=== PATIENT | male | born 1990 ===

== ENCOUNTER 2025-04-13 11:07 | Outpatient (AMB) | payer OTHER, SELFPAY ==
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
[2025-04-13 11:18] VITALS: BP 143/88; PULSE 74; O2SAT 99; BMI 36.4
--- OUTSIDE RECORDS SUMMARY | 2025-04-13 13:26 | XMS_ITS | Encounter Summary ---
Author Organization [facility] Address [address] [place] [address] Encounters * CPT with Dane Carreon at [employer] on 2024-12-25 { reasonForRequest : Wound care post surgery on patients Shoulder. , patie ntReports : , denies :[ Manzo Flash, circumferential manzo , Manzo reported with black tissue to the area , Open skin area after a fall with uncontrolled bleeding , Abscess/infection with streaking noted, presence of fever or without", History of cellulitis, isolated redness noted , Fever and chills noted in setting of wound , Rash , Bites -bugs, spider , Abscess ], chiefC omplaints : Wound Care, Extremity Swelling , pmh : Anxiety Disorder&qu ot;, allergies : No Known Drug Allergies , otherAllergies : &quot ;, painAssessment : , visitOutcome : , additionalComments : 34 y.o male complains of Wound Care, Extremity Swelling\nPatient had right shoulder surgery on 12/21/24 and states they did not send him home with any supplies and has no VNA at this time. Patient states there is draining on the dressing and he has not removed it yet. Complains of pain, and swelling in right shoulder denies any warmth and of note states he removed the SADI drain himself yesterday because he thought that's what he was instructed to do once there was no drainage in the bulb. denies any fever or chills at this time. reviewed red flags. \n\nI provided information onthe mobile health provider response time and advised the patient and/or caregiver to monitor reported signs and symptoms. I discussed the warning signs of when to seek emergency care. } Patient alert and oriented complains of right shoulder pain. Patient underwent shoulder fusion surgery three days ago, requests wound care and dressing change. Patient denies nausea, vomiting, diarrhea, chest pain, difficulty, breathing dizziness, weakness fever, chills, or any other pain or complaints. Patient reports he removed drain attached to wound. Patient pink warm dry wound in pictures, secondary exam unremarkable. Negative increase work of breathing positive full sentences right arm in sling with padding. Good CSM???s right arm. Wound examined, dressings discolored with blood. Pictures in documents. Wound bandaged, advised to call back if dressings become discolored. Patient advised to attend the Follow up appointment in twoweeks. Red flags patient education discussed. Patient demonstrates understanding of care and plan. IV_(FLUIDS_AND/OR_MEDICATION), MEDICATION_IM, ORAL_MEDICATION, WOUND_CARE, ORTHOSTATIC_VITAL_SIGNS Written by Dane Carreon on 2024-12-25
--- OUTSIDE RECORDS SUMMARY | 2025-04-13 13:26 | XMS_ITS | Continuity of Care Document ---
Author Name Dane Carreon Address [address] [place] [id number] Organization Unknown Address [address] [place] [address] Medications No known medications Problems No known problems
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
== END 2025-04-13 11:42 | disposition home or self-care (01) ==
LOC: HO.PMC 11:07
PROVIDERS: PCP Student in an Organized Health Care Education/Training Program; Visit Provider Nurse Practitioner Family
DX: M54.50 Low back pain, unspecified (principal); M53.3 Sacrococcygeal disorders, not elsewhere classified; M25.511 Pain in right shoulder; G89.29 Other chronic pain; Z98.890 Other specified postprocedural states; G54.0 Brachial plexus disorders
CPT/HCPCS: 99204

== ENCOUNTER → 2025-04-13 11:07 | Outpatient (BNVA) | payer OTHER, SELFPAY | PROVIDERS: PCP Student in an Organized Health Care Education/Training Program; Visit Provider Nurse Practitioner Family | DX: M25.511 Pain in right shoulder (principal); G89.29 Other chronic pain; G54.0 Brachial plexus disorders; M54.50 Low back pain, unspecified; M53.3 Sacrococcygeal disorders, not elsewhere classified | CPT/HCPCS: 99202 ==

== ENCOUNTER 2025-06-11 09:54 | Outpatient (AMB) | payer OTHER, SELFPAY ==
--- NOTE | 2025-06-11 10:04 | MHC.OFFVIS ---
Vital Signs 06/11/25 10:05 Height 5 ft 6 in Weight 229 lb BMI 37.0 BP 140/80 H Blood Pressure Location Rt brachial Position Sitting Respiration 16 Pulse 77 Pulse Source Pulse Oximeter Pulse Oximetry (%) 96 Oxygen Delivery Method Room Air Intake Visit Reasons: Right Diagnostic Brachial Plexus Nerve Block Compound Worker Required: No Diorama Model Maker: Diorama Model Maker Present Accompanied by: Asad Debbie Allergies acetaminophen (From TYLENOL) Allergy (Unknown, Verified 06/11/25 10:07) HIVES aspirin (ASPIRIN) Allergy (Unknown, Verified 06/11/25 10:07) RASH peanut (PEANUT) Allergy (Unknown, Verified 06/11/25 10:07) RASH Medication List - Last Reconciled 06/11/25 by Angélica Nolen LPN albuterol sulfate 90 mcg/actuation (Ventolin HFA) 2 puffs inhalation Q6H PRN escitalopram oxalate 20 mg PO DAILY ferrous gluconate 324 mg PO DAILY fluticasone propionate 110 mcg/actuation 2 puffs inhalation BID loratadine 10 mg PO DAILY methocarbamol 750 mg PO BEDTIME pantoprazole 40 mg PO DAILY polyethylene glycol 3350 17 grams PO DAILY pregabalin 25 mg PO BID 30 days sennosides (senna) 8.6 mg PO DAILY HPI Comments Details: History of Present Illness The patient is a 35 year old male presenting with pain in his right arm. He reports the pain is located throughout his arm, including the forearm, wrist, and fingertips. He describes the pain as neuropathic in nature. Associated symptoms include swelling, numbness, and redness of the forearm. He denies any cyanosis. The only medication that provides relief is ibuprofen. The patient reports a history of multiple prior surgeries. Pain Description - Location: The patient reports pain throughout his arm, specifically in the forearm, wrist, and fingertips, with the pain being worst in these areas. - Quality: The pain is described as being neuropathic. - Associated symptoms: The patient reports swelling, numbness, and redness in the affected arm. - Exacerbating/Relieving factors: Ibuprofen is the only thing that helps alleviate the pain. - Other: The affected area is not painful to touch and does not turn blue. [facility] Medical History (Updated 06/15/25 @ 16:14 by Ignacio Olivo MD) Traumatic brain injury with loss of consciousness Pressure sensation in ear Opiate addiction Multiple closed fractures of ribs of right side Mediastinal hematoma Helicobacter positive gastritis H pylori ulcer GERD without esophagitis Closed fracture of occipital bone Closed fracture of mandible Nerve pain Depression Anxiety Chronic pain due to trauma Closed displaced fracture of middle third of scaphoid bone of left wrist Avulsion of cranial nerve Asthma Acute pharyngitis Abdominal pain Surgical History (Updated 04/13/25 @ 11:48 by KIKE Coronado) History of shoulder surgery History of jaw surgery History of neck surgery Social History (Updated 04/13/25 @ 11:29 by Aye Garrett) Alcohol intake: never Patient Tobacco Use Status: Former Tobacco user Substance Use Type: Marijuana Physical Exam Exam Exam: Physical Exam - Musculoskeletal: The right forearm appears swollen compared to the left. - Integumentary: Redness of the right forearm skin is noted. - Neurological: The right arm is non-tender to palpation. - Sensation is decreased to light touch. Procedure - Procedure: Right brachial plexus block at the infraclavicular level. - Consent: Informed consent was obtained prior to the procedure. - Description: The patient was placed in the supine position. - A curvilinear ultrasound probe was used to visualize the brachial plexus at the infraclavicular level, and associated vascular structures were identified using color Doppler. - A 21-gauge echostim needle was advanced under ultrasound guidance to the brachial plexus trunks. - Following negative aspiration, 0.25% ropivacaine 10 mL was injected. - The patient tolerated the procedure well. Image saved. Vital Signs: Last Vital Signs Pulse 77 06/11/25 10:05 Resp 16 06/11/25 10:05 BP 140/80 H 06/11/25 10:05 Pulse Ox 96 06/11/25 10:05 Oxygen Delivery Method Room Air 06/11/25 10:05 BMI result Body Mass Index 37.0 Assessment & Plan Assessment & Plan (1) CRPS (complex regional pain syndrome) type I: Code(s): G90.50 - Complex regional pain syndrome I, unspecified Category: Medical Plan Plan Patient was informed and verbally consented to the use of an ambient scribe for clinic note documentation during this visit. 1. Complex Regional Pain Syndrome I Of Right Upper Limb - The patient's presentation with pain, swelling, and redness in the right forearm is indicative of complex regional pain syndrome (CRPS). - A stellate ganglion block would be beneficial, but could not be performed today as the patient did not have a ha[place]ak driver. - A right brachial plexus block at the infraclavicular level was performed instead to provide some symptom relief. - A follow-up plan includes a right stellate ganglion block. - If the stellate ganglion block is not effective, a trial of temporary peripheral nerve stimulation will be considered. Discussion Notes I discussed with the patient that his symptoms of pain, redness, and swelling in his right forearm and hand are indicative of developing complex regional pain syndrome (CRPS). I explained that while a stellate ganglion block would be the ideal procedure for his type of pain, I could not perform it today because he drove himself to the appointment and would not have a safe ride home. Instead, I performed a brachial plexus block to provide some relief and to see if a nerve block would be helpful. We will monitor his response to today's injection, and if it is not helpful, we will plan to proceed with the stellate ganglion block at a future visit. I informed the patient that for any future procedures, it is necessary to have someone available to drive him home. Further options, including a trial of temporary peripheral nerve stimulation, were mentioned if nerve blocks do not provide adequate relief. Patient Instructions - You received a nerve block injection in your arm today to help with your pain. - Because of the injection, your arm may feel numb or weak. - It is not safe for you to drive home today. - We will see how much this injection helps your pain over the next week. - If the pain does not get better, we will schedule a different type of injection for you. - For any future injections, you must have someone with you to drive you home. Coding Level of Care Code Procedure Only Diagnoses CRPS (complex regional pain syndrome) type I G90.50
[2025-06-11 10:05] VITALS: BP 140/80; PULSE 77; RESP 16; O2SAT 96; BMI 37.0
== END 2025-06-11 10:27 | disposition home or self-care (01) ==
LOC: HO.PMC 09:54
PROVIDERS: PCP Student in an Organized Health Care Education/Training Program; Visit Provider Internal Medicine
DX: G90.511 Complex regional pain syndrome I of right upper limb (principal)
CPT/HCPCS: 64415

== ENCOUNTER → 2025-06-11 09:54 | Outpatient (BNVA) | payer OTHER, SELFPAY | PROVIDERS: PCP Student in an Organized Health Care Education/Training Program; Visit Provider Internal Medicine | DX: G90.511 Complex regional pain syndrome I of right upper limb (principal) | CPT/HCPCS: 64415 ==